=== PATIENT | male | born 1985 | race Caucasian/White ===

== ENCOUNTER 2016-04-02 09:00 | Emergency (ER) | payer MEDICAID, OTHER ==
[2016-04-02 09:28] VITALS: BP 125/67
--- NOTE | 2016-04-02 09:52 | UC ---
Skin Complaint HPI - HPI Summary HPI Summary: LACERATION RIGHT UPPER ARM 1 HR AGO CUT HIS RIGHT UPPER ARM WITH METAL - History of Current Complaint Chief Complaint: UCLaceration Time Seen by Provider: 04/02/16 09:43 Stated Complaint: RIGHT ARM LACERATION Hx Obtained From: Patient Onset/Duration: Sudden Onset, Lasting Hours - 1, Still Present Timing: Constant Onset Severity: Moderate Current Severity: Moderate Location: Discrete - RIGHT UPPER ARM Character: Swelling, Pain, Redness Aggravating: Touch Alleviating: Other - PRESSURE Associated Signs & Symptoms: Positive: Tenderness. Negative: Drainage Related History: Trauma - CUT ARM WITH A SHARP METAL OBECT - Allergy/Home Medications Allergies/Adverse Reactions: Allergies Allergy/AdvReac Type Severity Reaction Status Date / Time No Known Allergies Allergy Verified 04/02/16 09:28 Home Medications: Home Medications NK [No Home Medications Reported] 04/02/16 [History Confirmed 04/02/16] Review of Systems Constitutional: Negative Eyes: Negative ENT: Negative Respiratory: Negative Cardiovascular: Negative All Other Systems Reviewed And Are Negative: Yes PMH/Surg Hx/FS Hx/Imm Hx Previously Healthy: Yes - Surgical History Surgical History: Yes Surgery Procedure, Year, and Place: plate in right foot - Family History Known Family History: Negative: Other - MRSA - Social History Alcohol Use: Occasionally Substance Use Type: None Smoking Status (MU): Former Smoker When Did the Patient Quit Smoking/Using Tobacco: ~2013 - Immunization History Most Recent Influenza Vaccination: Not the 2015/2016 Season Most Recent Tetanus Shot: "Within the last seven years for sure." Physical Exam Triage Information Reviewed: Yes Appearance: Well-Appearing, No Pain Distress, Well-Nourished Vital Signs: Initial Vital Signs Temp 98.2 F 04/02/16 09:22 Pulse 87 04/02/16 09:22 Resp 18 04/02/16 09:22 BP 125/67 04/02/16 09:22 Vital Signs Reviewed: Yes Eyes: Positive: Conjunctiva Clear ENT: Positive: Normal ENT inspection, Hearing grossly normal, Pharynx normal Neck exam: Normal Neck: Positive: Supple, Nontender, No Lymphadenopathy Respiratory: Positive: Chest non-tender, Lungs clear, Normal breath sounds, No respiratory distress Cardiovascular: Positive: RRR, No Murmur, Pulses Normal Skin: Positive: Other - + 3 CM ABRSION RIGHT UPPER ARM , NO NEED FOR REPAIR Course/Dx - Diagnoses Provider Diagnoses: ABRASION RIGHT ARM Discharge - Discharge Plan Condition: Stable Disposition: HOME Patient Education Materials: Abrasion (ED) Referrals: Non Staff,Doctor [Primary Care Provider] - If Needed
== END 2016-04-02 10:02 | disposition home or self-care (01) ==
LOC: UCCORT 09:00
DX: S40.811A Abrasion of right upper arm, initial encounter (principal); W45.8XXA Other foreign body or object entering through skin, initial encounter; Y92.9 Unspecified place or not applicable; Z87.891 Personal history of nicotine dependence
CPT/HCPCS: 99212; G0463

== ENCOUNTER 2018-11-01 20:11 | Emergency (ER) | payer SELFPAY ==
[2018-11-01 20:35] VITALS: BP 160/84
[2018-11-01] MEDS ORDERED: Amoxicillin/Clavulanate TAB* 875 MG PO ONE (20:38)
[2018-11-01] MEDS ORDERED: Tetan/Diph/Pertus SYR(Tdap)* 0.5 ML SYR(BOOSTRIX) use SYR contains LATEX IM ONE (20:39)
[2018-11-01] MEDS ORDERED: Lidocaine 1% MDV 20 ML INJ ONE (20:39)
[2018-11-01] MEDS ORDERED: Lidocaine 1% MPF ** 5 ML VIAL ONE (20:47)
--- NOTE | 2018-11-01 21:15 | UC ---
Laceration HPI - HPI Summary HPI Summary: about an hour ago pt's dogs were fighting and when he went to go break them apart one of them bit him on his L forearm. - History Of Current Complaint Chief Complaint: STEVENkin Stated Complaint: LEFT ARM LAC/DOG BITE Time Seen by Provider: 11/01/18 20:34 Hx Obtained From: Patient Laceration Location: Arm Mechanism Of Injury: Sharp Trauma Onset/Duration: Sudden Onset, Lasting Minutes Severity: Severe Pain Intensity: 7 Aggravating Factors: Position, Movement - Allergies/Home Medications Allergies/Adverse Reactions: Allergies Allergy/AdvReac Type Severity Reaction Status Date / Time No Known Allergies Allergy Verified 11/01/18 20:31 Home Medications: Home Medications Ibuprofen TAB* [Advil TAB*] 800 mg PO ONCE 11/01/18 [History Confirmed 11/01/18] PMH/Surg Hx/FS Hx/Imm Hx Previously Healthy: Yes - Surgical History Surgical History: Yes Surgery Procedure, Year, and Place: plate in right foot - Family History Known Family History: Negative: Other - MRSA - Social History Alcohol Use: Occasionally Substance Use Type: None Smoking Status (MU): Heavy Every Day Tobacco Smoker Amount Used/How Often: 1 ppd When Did the Patient Quit Smoking/Using Tobacco: ~2013 - Immunization History Most Recent Influenza Vaccination: Not the 2015/2016 Season Most Recent Tetanus Shot: unsure Review of Systems All Other Systems Reviewed And Are Negative: Yes Skin: Positive: Other - 4 wounds Is Patient Immunocompromised?: No Physical Exam Triage Information Reviewed: Yes Appearance: Well-Appearing, Well-Nourished, Pain Distress Vital Signs: Initial Vital Signs Temp 100.2 F 11/01/18 20:26 Pulse 116 11/01/18 20:26 Resp 18 11/01/18 20:26 BP 160/84 11/01/18 20:26 Pulse Ox 100 11/01/18 20:26 Vital Signs Reviewed: Yes Eye Exam: Normal ENT Exam: Normal Dental Exam: Normal Neck exam: Normal Respiratory Exam: Normal Cardiovascular Exam: Normal Abdominal Exam: Normal Bowel Sounds: Positive: Present Musculoskeletal Exam: Normal Neurological Exam: Normal Psychological Exam: Normal Skin: Positive: Significant Lesion(s) - 3 large puncture wounds and 1 2.5 cm laceration Laceration Course/Dx - Course/Dx Course Of Treatment: hx obtained, exam performed ,meds reviewed, lacerations repaired, abx prescribed. tetanus given, educated on care. - Differential Dx - Laceration/Wound Differental Diagnoses: Laceration, Puncture Wound - Diagnosis Provider Diagnosis: Puncture wound of forearm, Laceration Discharge - Sign-Out/Discharge Documenting (check all that apply): Patient Departure All imaging exams completed and their final reports reviewed: No Studies - Discharge Plan Condition: Stable Disposition: HOME Patient Education Materials: Animal Bite (ED), Laceration (ED) Referrals: No Primary Care Phys,NOPCP [Primary Care Provider] - Additional Instructions: 1. keep area clean and dry 2. take the antibioitics as prescribed. 3. Sutures can be removed in 10 days 4. FOllow up sooner with any sign of infection - Billing Disposition and Condition Condition: STABLE Disposition: Home
== END 2018-11-01 21:25 | disposition home or self-care (01) ==
LOC: UCCORT 20:11
DX: S51.852A Open bite of left forearm, initial encounter (principal); W54.0XXA Bitten by dog, initial encounter; Y93.89 Activity, other specified; Y92.9 Unspecified place or not applicable; F17.210 Nicotine dependence, cigarettes, uncomplicated
CPT/HCPCS: 12002; 90471; 90715; 99212; A9270-GY; G0463